=== PATIENT | female | born 1965 | race Caucasian/White ===

== ENCOUNTER 2018-08-29 15:29 | Emergency (ER) | payer SELFPAY ==
[~2018-08-29 15:29] MED LIST: NOREPINEPHRINE BITARTRATE INJ/PF 4 MG/4 ML SDV IV ONE; ROCURONIUM BROMIDE INJ 50 MG/5 ML VIAL IV ONE
[2018-08-29] MEDS: DEXTROSE 5%-WATER 250 ML with NOREPINEPHRINE BITARTRATE 4 MG IV PRN ×4 (15:35→21:57)
[2018-08-29] MEDS ORDERED: MIDAZOLAM HCL 50 MG/100 ML RTUINJ ONE (16:26)
--- NOTE | 2018-08-29 16:36 | ER Document Report ---
ED General - General Stated Complaint: POSSIBLE OVERDOSE Time Seen by Provider: 08/29/18 16:15 - HPI Notes: Patient is a 51-year-old female that presents to the emergency department for chief complaint of overdose and suicide attempt. Patient presented from home by EMS for overdose. She was found in the bathtub somnolent and told her daughter that she had taken medication to kill herself. Daughter states that they had been having issues at home and she had recently asked her mother to move out. She states her mom has a long history of threatening suicide but has never attempted suicide in the past. HPI is limited because of patient's current mental status. There was no report of trauma. Patient's daughter does state that her mother had destroyed the house including some spreading feces in multiple rooms. Past Medical History: Hypertension, anxiety, depression Past Surgical History: Unknown Social History: Unknown Family History: Reviewed and noncontributory for presenting illness Allergies: Reviewed, see documented allergy list. REVIEW OF SYSTEMS: Unable to obtain because of patient acuity of condition PHYSICAL EXAMINATION: Vital signs reviewed, nursing noted reviewed. GENERAL: Somnolent HEAD: Right periorbital ecchymosis, cephalhematoma to right forehead, abrasion to top of head with no active bleeding, overlying scab. EYES: Eyes appear normal, extraocular movements intact, sclera anicteric, conjunctiva are normal. ENT: nares patent, oropharynx clear without exudates. Moist mucous membranes. NECK: Normal range of motion, supple without lymphadenopathy LUNGS: Breath sounds clear to auscultation bilaterally and equal. No wheezes rales or rhonchi. HEART: Regular rate and rhythm without murmurs ABDOMEN: Soft, nontender. No rebound, guarding, or rigidity. No masses appreciated. EXTREMITIES: Nontender, good range of motion, no pitting or edema. NEUROLOGICAL: GCS 10, moves all extremities on command, motor and sensory grossly intact on exam. PSYCH: Suicidal SKIN: Warm, Dry, normal turgor - Related Data Allergies/Adverse Reactions: Penicillins Allergy (Verified 08/29/18 16:57) Past Medical History - Social History Smoking Status: Unknown if Ever Smoked Family History: None Physical Exam - Vital signs Vitals: BP 50/42 L 08/29/18 15:33 Course - Re-evaluation Re-evalutation: 08/29/18 16:33 Patient presented by EMS hypotensive and somnolent. While I was talking to her her somnolence was rapidly progressing. Her GCS was declining and was 10 when she was intubated for airway protection. Patient's blood pressure was 50 systolic at presentation. She received 2500 mL normal saline on pressure bags and was still hypotensive. Peripheral Levophed was started. Right femoral line was placed for access and further pressors for blood pressure control. Patient's daughter is at bedside and was updated on patient's condition. She will be transferred to [facility] for further care. Medications missing losartan-HCTZ 100 mg / 25 mg, 30 pills missing Xanax 1 mg, 37 pills missing Cymbalta, 45 pills missing, dose unknown as bottle is not present Lyrica, 54 pills missing, 100 mg tablets Bupropion 150 mg tablets, 41 pills missing for EKG shows borderline prolonged QT, she is on the monitor with crash cart at bedside. 08/29/18 16:36 08/29/18 17:01 Patient's care discussed with Dr. Akhil Lees at [facility] who accepts patient for transfer Patient tolerating Versed drip for sedation and is resting comfortably. Laboratory 08/29/18 08/29/18 16:40 16:40 Urine Color STRAW Urine Appearance CLEAR Urine pH 7.0 Ur Specific [place] 1.004 Urine Protein NEGATIVE Urine Glucose (UA) 50 H Urine Ketones NEGATIVE Urine Blood NEGATIVE Urine Nitrite NEGATIVE Urine Bilirubin NEGATIVE Urine Urobilinogen NEGATIVE Ur Leukocyte Esterase NEGATIVE Urine WBC (Auto) 1 Urine RBC (Auto) 0 U Hyaline Cast (Auto) 3 Squamous Epi Cells Auto <1 Urine Mucus (Auto) FEW Urine Ascorbic Acid NEGATIVE Urine Opiates Screen NEGATIVE Urine Methadone Screen NEGATIVE Ur Barbiturates Screen NEGATIVE Ur Phencyclidine Scrn NEGATIVE Ur Amphetamines Screen NEGATIVE U Benzodiazepines Scrn UNCONFIRMED POSITIVE Urine Cocaine Screen NEGATIVE U Marijuana (THC) Screen NEGATIVE 08/29/18 19:12 Patient reevaluated and is still comfortable with sedation. Her lab work shows acidosis with a pH of 7.3. This is secondary to her polysubstance ingestion. Patient also has renal insufficiency with a creatinine of 2.77 which she is receiving IV fluids for him. Patient is still on levo fed. Current blood pressure 125/77. Patient has a leukocytosis however there is no infection on her chest x-ray or urine. Her leukocytosis is likely secondary to her acidosis and ingestion. I do not see any infection which is currently requiring antibiotics. Patient is not septic. She has a normal lactic acid. 08/29/18 21:22 Patient reevaluated. Her Levophed has been titrated down. She is now starting to wake up and fentanyl was ordered for further sedation. 08/29/18 23:12 Patient evaluated just prior to leaving with transportation and was well sedated and in no distress. She is stable for transfer. - Vital Signs Vital signs: Temp Pulse Resp BP Pulse Ox 12 136/83 H 100 08/29/18 22:10 08/29/18 22:10 08/29/18 22:10 - Laboratory Result Diagrams: 08/29/18 17:26 08/29/18 17:26 Laboratory results interpreted by me: 08/29/18 08/29/18 08/29/18 16:40 17:26 17:26 WBC 24.8 H Hct 34.1 L Seg Neuts % (Manual) 88 H Lymphocytes % (Manual) 8 L Abs Neuts (Manual) 21.8 H ABG pH ABG pO2 Potassium 3.2 L BUN 28 H Creatinine 2.77 H Est GFR ( Amer) 22 L Est GFR (Non-Af Amer) 18 L Glucose 149 H Calcium 7.9 L Total Bilirubin 1.8 H Direct Bilirubin 0.5 H Total Protein 6.1 L Urine Glucose (UA) 50 H Salicylates < 1.0 L Acetaminophen < 10 L 08/29/18 17:35 WBC Hct Seg Neuts % (Manual) Lymphocytes % (Manual) Abs Neuts (Manual) ABG pH 7.30 L ABG pO2 76.3 L Potassium BUN Creatinine Est GFR ( Amer) Est GFR (Non-Af Amer) Glucose Calcium Total Bilirubin Direct Bilirubin Total Protein Urine Glucose (UA) Salicylates Acetaminophen - EKG Interpretation by Me Additional EKG results interpreted by me: 08/29/18 16:35 Interpreted by myself 1612: Normal sinus rhythm, rate 77, borderline prolonged QT, diffuse T wave flat tening, no STEMI Procedures - Central Line Right Femoral Time completed: 16:00 Consent obtained: No - emergent Central line pre-insertion: Sterile PPE donned, Chloraprep applied, Sterile drapes applied Central line lumen type: Double Anesthetic type: Other - patient sedated Ultrasound guided: Yes Line secured with sutures: Yes Central line post-insertion: Blood return from lumens, Biopatch applied, Sutured, Sterile dressing applied, Position confirmed w/ CXR Number of attempts: 1 Complications: No - Intubation Orotracheal Time of Intubation: 15:35 Mallampati Classification: Class 3 Medications: Etomidate, Other - Rocuronium Intubation method: Orotracheal Equipment used: Glidescope ETT size: 7.5 ETT secured at: Gums ETT secured at (cm): 23 Breath Sounds after Intubation: Equal Tidal volume: 400 FiO2: 400 Respirations: 12 Pressure support: 10 PEEP: 5 Post Intubation Xray: Yes Intubation Complications: No complications Critical Care Note - Critical Care Note Total time excluding time spent on procedures (mins): 130 Comments: Polysubstance overdose. Cardiogenic shock. Discussions with poison control, family, community recreation programmer. Potential for cardiovascular and respiratory decompensation. Multiple re-evaluations. Discharge - Discharge Clinical Impression: Shock Overdose Qualifiers: Encounter type: initial encounter Injury intent: intentional self-harm Qualified Code(s): T50.902A - Poisoning by unspecified drugs, medicaments and biological substances, intentional self-harm, initial encounter Change in mental status Qualifiers: Altered mental status type: unspecified Qualified Code(s): R41.82 - Altered m ental status, unspecified Renal failure Qualifiers: Renal failure chronicity: acute Acute renal failure type: unspecified Qualified Code(s): N17.9 - Acute kidney failure, unspecified Condition: Stable Disposition: [facility]
[2018-08-29 17:23] LABS: APPEARANCE,URINE CLEAR; BILIRUBIN,URINE NEGATIVE (NEGATIVE); COLOR,URINE STRAW; GLUCOSE, URINE 50 mg/dL (NEGATIVE); KETONES,URINE NEGATIVE (NEGATIVE); LEUKOCYTE ESTERASE,URINE NEGATIVE (NEGATIVE); NITRITE,URINE NEGATIVE (NEGATIVE); PROTEIN,URINE NEGATIVE (NEGATIVE); URINE SPECIFIC GRAVITY 1.004; UROBILINOGEN,URINE NEGATIVE mg/dL (<2.0)
[2018-08-29 17:31] LABS: URINE AMPHETAMINES SCREEN NEGATIVE; URINE BARBITURATES SCREEN NEGATIVE; URINE BENZODIAZEPINES SCREEN UNCONFIRMED POSITIVE; URINE COCAINE SCREEN NEGATIVE; URINE MARIJUANA (THC) SCREEN NEGATIVE; URINE METHADONE SCREEN NEGATIVE; URINE PHENCYCLIDINE SCREEN NEGATIVE
--- NOTE | 2018-08-29 17:37 | RADIOLOGY REPORT (SQ) ---
EXAM DESCRIPTION: KUB/ABDOMEN (SINGLE VIEW) COMPLETED DATE/TIME: 08/29/2018 5:19 pm REASON FOR STUDY: right femoral line COMPARISON: None. NUMBER OF VIEWS: One view. TECHNIQUE: Supine radiographic image of the abdomen acquired. LIMITATIONS: None. FINDINGS: BOWEL GAS PATTERN: Normal bowel gas pattern. No dilated loops. CALCIFICATIONS: No suspicious calcifications. SOFT TISSUES: No gross mass or suggestion of organomegaly. HARDWARE: NG/OG tube has its tip in the body of the stomach. There appears to be a right femoral cat heter. The tip is in the iliac vein. BONES: No acute fracture. No worrisome bone lesions. OTHER: No other significant finding. IMPRESSION: Findings as described. TECHNICAL DOCUMENTATION: JOB ID: [id number] [employer]- All Rights Reserved Reading location - IP/workstation name: [email or web address]
--- NOTE | 2018-08-29 17:39 | RADIOLOGY REPORT (SQ) ---
EXAM DESCRIPTION: CHEST SINGLE VIEW COMPLETED DATE/TIME: 08/29/2018 5:18 pm REASON FOR STUDY: intubation COMPARISON: None. EXAM PARAMETERS: NUMBER OF VIEWS: One view. TECHNIQUE: Single frontal radiographic view of the chest acquired. RADIATION DOSE: NA LIMITATIONS: None. FINDINGS: LUNGS AND PLEURA: No opacities, masses or pneumothorax. No pleural effusion. MEDIASTINUM AND HILAR STRUCTURES: No masses. Contour normal. HEART AND VASCULAR STRUCTURES: Heart normal in size. Normal vasculature. BONES: No acute findings. HARDWARE: Endotracheal tube has its tip 15 mm above the kaylen. OG tube extends the stomach. OTHER: No other significant finding. IMPRESSION: NO ACUTE RADIOGRAPHIC FINDING IN THE CHEST. TECHNICAL DOCUMENTATION: JOB ID: [id number] [employer]- All Rights Reserved Reading location - IP/workstation name: [email or web address]
[2018-08-29] MEDS ORDERED: ROCURONIUM BROMIDE INJ 50 MG/5 ML VIAL IV ONE (17:43)
[2018-08-29] MEDS ORDERED: ETOMIDATE INJ/PF 20 MG/10 ML SDV IV ONE (17:43)
[2018-08-29] MEDS ORDERED: MIDAZOLAM HCL 50 MG/100 ML RTUINJ IV PRN (17:44)
[2018-08-29] MEDS ORDERED: NORMAL SALINE 1000 ML 1,000 ML IV ONE (17:44)
[2018-08-29 17:49] LABS: ARTERIAL BLOOD H2CO3 1.24 mmol/L (1.05-1.35); ARTERIAL BLOOD O2 SATURATION 94.1 % (94-98); ARTERIAL BLOOD PCO2 41.1 mmHg (35-45); ARTERIAL BLOOD PO2 76.3 mmHg (80-100); ARTERIAL BLOOD TOTAL CO2 21.2 mmol/L (21-25)
[2018-08-29 17:51] LABS: HEMATOCRIT 34.1 % (36.0-47.0); MEAN CORPUSCULAR HEMOGLOBIN 31.2 pg (27.0-33.4); MEAN CORPUSCULAR VOLUME 89 fl (80-97); PLATELET COUNT 261 10^3/uL (150-450); RED BLOOD COUNT 3.84 10^6/uL (3.72-5.28); RED CELL DISTRIBUTION WIDTH 13.1 % (11.5-14.0); WHITE BLOOD COUNT 24.8 10^3/uL (4.0-10.5)
[2018-08-29 17:54] LABS: ARTERIAL BLOOD FIO2 40%
[2018-08-29 18:07] LABS: ABSOLUTE NEUTROPHILS# (MANUAL) 21.8 10^3/uL (1.7-8.2); BASOPHILS % (MANUAL) 0 % (0-2); EOSINOPHILS % (MANUAL) 0 % (0-6); LYMPHOCYTES % (MANUAL) 8 % (13-45); MONOCYTES % (MANUAL) 4 % (3-13); SEGMENTED NEUTROPHILS % (MAN) 88 % (42-78); TOTAL CELLS COUNTED 100
[2018-08-29 18:08] LABS: PLATELET COMMENT ADEQUATE; PLATELET LARGE PRESENT; POIKILOCYTOSIS SLIGHT; TEAR DROP CELLS SLIGHT
[2018-08-29 18:09] LABS: ALANINE AMINOTRANSFERASE 22 U/L (9-52); ALBUMIN 3.5 g/dL (3.5-5.0); ALKALINE PHOSPHATASE 71 U/L (38-126); ANION GAP 11 (5-19); ASPARTATE AMINO TRANSFERASE 22 U/L (14-36); BILIRUBIN,DIRECT 0.5 mg/dL (0.0-0.4); BILIRUBIN,TOTAL 1.8 mg/dL (0.2-1.3); BLOOD UREA NITROGEN 28 mg/dL (7-20); CALCIUM 7.9 mg/dL (8.4-10.2); CARBON DIOXIDE 24 mmol/L (22-30); CHLORIDE 103 mmol/L (98-107); GLUCOSE 149 mg/dL (75-110); POTASSIUM 3.2 mmol/L (3.6-5.0); SODIUM 137.7 mmol/L (137-145); TOTAL PROTEIN 6.1 g/dL (6.3-8.2)
[2018-08-29 18:10] LABS: ACETAMINOPHEN < 10 ug/mL (10-30); ALCOHOL < 10 mg/dL (NONE DETECTED); SALICYLATE < 1.0 mg/dL (2.0-20.0)
[2018-08-29] MEDS ORDERED: FENTANYL CITRATE/PF 600 MCG/60 ML BAG IV PRN (21:01)
[2018-08-29] MEDS ORDERED: FENTANYL CITRATE INJ/PF 100 MCG/2 ML AMPUL IV ONE (21:10)
[2018-08-29] MEDS ORDERED: FENTANYL CITRATE INJ/PF 100 MCG/2 ML AMPUL ONE (21:11)
[2018-08-29] MEDS ORDERED: NOREPINEPHRINE BITARTRATE INJ/PF 4 MG/4 ML SDV IV ONE (21:43)
[2018-08-29 22:14] VITALS: BP 136/83
--- NOTE | 2018-08-30 08:20 | EKG REPORT ---
SEVERITY:- BORDERLINE ECG - SINUS RHYTHM CONSIDER ANTERIOR INFARCT BORDERLINE T ABNORMALITIES, INFERIOR LEADS : Confirmed by: Brenna Bang MD 30-Aug-2018 08:19:41
== END 2018-08-29 22:35 | disposition short-term general hospital (02) ==
LOC: EDBD → ER 15:29
DX: T50.902A Poisoning by unspecified drugs, medicaments and biological substances, intentional self-harm, initial encounter (principal); R41.82 Altered mental status, unspecified; I10 Essential (primary) hypertension; Z88.0 Allergy status to penicillin; X58.XXXA Exposure to other specified factors, initial encounter
CPT/HCPCS: 93005; 99291; 99292; 51702; 96365; 96366; 36415; 80307 ×4; 82803; 85025; 80053; 81001; 84484; 83605; 71045; 74018; 94660; 93010; 31500; 36556; J3490 ×2; J3010 ×2; J2250; J7060; J7030